=== PATIENT | male | born 1960 | race Caucasian/White ===

== ENCOUNTER 2019-07-27 13:49 | Emergency (ER) | payer BC, OTHER ==
--- NOTE | 2019-07-27 14:12 | EDM.PDOC ---
ED HPI GENERAL MEDICAL PROBLEM - General Chief Complaint: Abdominal Pain Stated Complaint: HERNIA PAIN Time Seen by Provider: 07/27/19 14:03 - History of Present Illness INITIAL COMMENTS - FREE TEXT/NARRATIVE: 58-year-old male presents the emergency room with abdominal pain. Patient is had a suspected right inguinal hernia for quite some time. He has been waiting for the - situation to settle down before seeking treatment for this. He has had worsening pain over the last 4 days and he notes that he has not had a bowel movement in 4 days. He denies any nausea vomiting fevers or chills. He has had no breathing difficulties. Past medical history is fairly unremarkable except for some hypertension he takes amlodipine and hydrochlorothiazide for this. Right Groin Pain Score (Numeric/FACES): 8 - Related Data Allergies Allergy/AdvReac Type Severity Reaction Status Date / Time Penicillins Allergy Other Verified 07/27/19 14:11 Home Meds: Home Meds Omeprazole 20 mg PO DAILY 07/27/19 [History] amLODIPine [Norvasc] 10 mg PO DAILY 07/27/19 [History] hydroCHLOROthiazide [Hydrochlorothiazide] 12.5 mg PO DAILY 07/27/19 [History] ED ROS GENERAL - Review of Systems Review Of Systems: See Below Constitutional: Reports: No Symptoms Respiratory: Reports: No Symptoms Cardiovascular: Reports: No Symptoms GI/Abdominal: Reports: Abdominal Pain (See history of present illness), Constipation. Denies: Diarrhea, Nausea, Vomiting : Reports: No Symptoms Musculoskeletal: Reports: No Symptoms ED EXAM, GI/ABD - Physical Exam Exam: See Below Exam Limited By: No Limitations General Appearance: Alert, No Apparent Distress Respiratory/Chest: No Respiratory Distress, Lungs Clear, Normal Breath Sounds Cardiovascular: Regular Rate, Rhythm, No Edema, No Murmur GI/Abdominal Exam: Normal Bowel Sounds, Soft, Other (Large right bulging inguinal type hernia) (Male) Exam: Hernia (Right inguinal I attempted to reduce this with the patient standing this cannot be done however soon as he laid down it spontaneously reduced on its own.) Back Exam: Normal Inspection, Full Range of Motion. No: CVA Tenderness (L), CVA Tenderness (R) Course - Vital Signs Last Recorded V/S: Last Vital Signs Temp 37.2 C 07/27/19 13:59 Pulse 88 07/27/19 13:59 Resp 18 04/19/20 13:59 BP 153/92 H 07/27/19 13:59 Pulse Ox 98 07/27/19 13:59 - Orders/Labs/Meds Orders: Active Orders 24 hr Category Date Time Status Abdomen 2V AP Flat Upright [CR] Stat Exams 07/27/19 14:13 Taken Lactated Ringers [Ringers, Lactated] 1,000 ml Med 07/27/19 14:15 Active IV ASDIRECTED Medication Orders Lactated Ringer's (Ringers, Lactated) 1,000 mls @ 150 mls/hr IV ASDIRECTED RANDI Labs: Laboratory Tests 07/27/19 07/27/19 07/27/19 Range/Units 14:30 14:30 15:23 WBC 5.43 (4.23-9.07) K/mm3 RBC 4.99 (4.63-6.08) M/mm3 Hgb 15.0 (13.7-17.5) gm/dl Hct 43.2 (40.1-51.0) % MCV 86.6 (79.0-92.2) fl MCH 30.1 (25.7-32.2) pg MCHC 34.7 (32.2-35.5) g/dl RDW Std Deviation 40.9 (35.1-43.9) fL Plt Count 259 (163-337) K/mm3 MPV 9.9 (9.4-12.3) fl Neut % (Auto) 67.7 (34.0-67.9) % Lymph % (Auto) 24.1 (21.8-53.1) % [place] % (Auto) 7.4 (5.3-12.2) % Eos % (Auto) 0.4 L (0.8-7.0) Baso % (Auto) 0.4 (0.1-1.2) % Neut # (Auto) 3.68 (1.78-5.38) K/mm3 Lymph # (Auto) 1.31 L (1.32-3.57) K/mm3 [place] # (Auto) 0.40 (0.30-0.82) K/mm3 Eos # (Auto) 0.02 L (0.04-0.54) K/mm3 Baso # (Auto) 0.02 (0.01-0.08) K/mm3 Sodium 140 (136-145) mEq/L Potassium 3.4 L (3.5-5.1) mEq/L Chloride 102 (98-107) mEq/L Carbon Dioxide 24 (21-32) mEq/L Anion Gap 17.4 H (5-15) BUN 13 (7-18) mg/dL Creatinine 1.3 (0.7-1.3) mg/dL Est Cr Clr Drug Dosing 70.26 mL/min Estimated GFR (MDRD) 56 (>60) mL/min BUN/Creatinine Ratio 10.0 L (14-18) Glucose 92 (74-106) mg/dL Calcium 9.5 (8.5-10.1) mg/dL Total Bilirubin 0.9 (0.2-1.0) mg/dL AST 12 L (15-37) U/L ALT 15 L (16-63) U/L Alkaline Phosphatase 65 (46-116) U/L Total Protein 7.6 (6.4-8.2) g/dl Albumin 4.3 (3.4-5.0) g/dl Globulin 3.3 gm/dL Albumin/Globulin Ratio 1.3 (1-2) Urine Color Yellow (Yellow) Urine Appearance Clear (Clear) Urine pH 7.0 (5.0-8.0) Ur Specific [place] 1.020 (1.005-1.030) Urine Protein Negative (Negative) Urine Glucose (UA) Negative (Negative) Urine Ketones 1+ H (Negative) Urine Occult Blood Trace-lysed H (Negative) Urine Nitrite Negative (Negative) Urine Bilirubin Negative (Negative) Urine Urobilinogen 0.2 (0.2-1.0) Ur Leukocyte Esterase Negative (Negative) Urine RBC 5-10 H (0-5) /hpf Urine WBC 0-5 (0-5) /hpf Ur Squamous Epith Cells 0-5 (0-5) /hpf Urine Bacteria Few (FEW) /hpf Urine Mucus Few (FEW) /hpf Meds: Medications Generic Name Dose Route Start Last Admin Trade Name Freq PRN Reason Stop Dose Admin Lactated Ringer's 1,000 mls @ 150 mls/hr 07/27/19 14:15 Ringers, Lactated IV ASDIRECTED RANDI Discontinued Medications Generic Name Dose Route Start Last Admin Trade Name Freq PRN Reason Stop Dose Admin Lactated Ringer's 500 mls @ 999 mls/hr 07/27/19 14:14 07/27/19 15:10 Ringers, Lactated IV 07/27/19 14:44 999 mls/hr .BOLUS ONE Administration Potassium Chloride 40 meq 07/27/19 15:59 Klor-Con M20 PO 07/27/19 16:00 ONETIME ONE - Re-Assessments/Exams Free Text/Narrative Re-Assessment/Exam: 07/27/19 16:28 Evaluation is really unremarkable except he is got some microscopic hematuria significance of this is unclear his symptoms are not at all like a kidney stone especially with the reduced inguinal hernia and his symptoms doing better after this is reduced. Case was discussed with Dr. Ford, surgeon remote control assembler. She will be unavailable this next week however recommends patient follow-up with Dr. Cerna tomorrow or Sunday. With the patient's x-ray findings no obstruction and a large amount of right-sided stool we will have the patient pickle cutter a bottle of mag citrate to take this evening and then start MiraLAX this evening. Chemistries are unremarkable other than his potassium is a little low at 3.4 we gave him 40 mEq potassium here in the emergency department. Departure - Departure Time of Disposition: 16:30 Disposition: Home, Self-Care 01 Clinical Impression: Right inguinal hernia - Discharge Information Referrals: Paramjit Christianson MD [Primary Care Provider] - Larry Cerna MD [Physician] - Forms: ED Department Discharge Additional Instructions: Return to the emergency room with any questions problems or worsening symptoms. Follow-up with Dr. Cerna tomorrow or Sunday. Tonight pickle cutter a bottle of mag citrate at the pharmacy, it is usually behind the counter but does not require a prescription. Also pickle cutter some MiraLAX and take as directed. Sepsis Event Note - Focused Exam Vital Signs: Vital Signs Temp Pulse Resp BP Pulse Ox 07/27/19 13:59 37.2 C 88 18 153/92 H 98 Date Exam was Performed: 07/27/19 Time Exam was Performed: 16:26 - My Orders Last 24 Hours: My Active Orders 07/27/19 14:13 Abdomen 2V AP Flat Upright [CR] Stat 07/27/19 14:15 Lactated Ringers [Ringers, Lactated] 1,000 ml IV ASDIRECTED - Assessment/Plan Last 24 Hours: My Active Orders 07/27/19 14:13 Abdomen 2V AP Flat Upright [CR] Stat 07/27/19 14:15 Lactated Ringers [Ringers, Lactated] 1,000 ml IV ASDIRECTED
[2019-07-27] MEDS ORDERED: Lactated Ringers 500 ML IV ONE (14:14)
[2019-07-27] MEDS ORDERED: Lactated Ringers 1,000 ML IV SCH (14:15)
[2019-07-27] MEDS ORDERED: Potassium Chloride 20 MEQ Tab.ER PO ONE (15:59)
[2019-07-27] MEDS ORDERED: Magnesium Citrate Solution 296 ML Bottle PO ONE (16:39)
[2019-07-27] MEDS ORDERED: Magnesium Citrate Solution 296 ML Bottle ONE (16:40)
--- NOTE | 2019-07-28 07:43 | CR ---
Abdomen: Supine and upright views of the abdomen were obtained. Comparison: No prior abdominal imaging. Calcifications are seen within the pelvis which are compatible with phleboliths. Slight increased stool is noted within the colon. Scattered gas within small bowel is seen which is believed to be incidental. No free air is seen. Bony structures are unremarkable. Impression: 1. Findings as noted above. 2. Nothing acute is seen. Diagnostic code #2 This report was dictated in MDT
== END 2019-07-27 16:50 | disposition home or self-care (01) ==
LOC: JD.ED 13:49
DX: K40.90 Unilateral inguinal hernia, without obstruction or gangrene, not specified as recurrent (principal); Z88.0 Allergy status to penicillin; Z79.899 Other long term (current) drug therapy
CPT/HCPCS: 36415; 74019; 80053; 81001; 85025; 99284; A9270; J7120; 99283